=== PATIENT | female | born 1985 | race American Indian/Alaskan Native ===

== ENCOUNTER 2018-09-24 13:10 | Emergency (ER) | payer MEDICAID, OTHER ==
[2018-09-24 13:17] VITALS: BP 99/55
--- NOTE | 2018-09-24 13:24 | Emergency Department Report ---
Chief Complaint: Sickle Cell Crisis Stated Complaint: LEGS/STOMACH/SIDE/HEAD PAIN Time Seen by Provider: 09/24/18 13:21 - HPI History of Present Illness: HEAD TO TOE PAIN HX SCD PE FIBROMYALGIA OFF ALL MEDS FOR WEEKS TO MAIN MSE COMPLETED - Exam Vital Signs: Vital Signs 09/24/18 13:16 Temperature 98.9 F Pulse Rate 114 H Respiratory 18 Rate Blood Pressure 99/55 [Right] O2 Sat by Pulse 98 Oximetry MSE screening note: Focused history and physical exam performed. Due to findings the following was ordered: ED Disposition for MSE Condition: Stable
[2018-09-24 13:46] LABS: Basophils # (Auto) 0.1 K/mm3 (0.0-0.1); Basophils % (Auto) 0.8 % (0.0-1.8); Eosinophils # (Auto) 0.1 K/mm3 (0.0-0.4); Eosinophils % (Auto) 1.6 % (0.0-4.3); Hematocrit 36.2 % (30.3-42.9); Hemoglobin 12.5 gm/dl (10.1-14.3); Lymphocytes # (Auto) 1.2 K/mm3 (1.2-5.4); Lymphocytes % (Auto) 14.6 % (13.4-35.0); Mean Corpuscular HGB Conc 34 % (30-34); Mean Corpuscular Volume 81 fl (79-97); Monocytes # (Auto) 0.9 K/mm3 (0.0-0.8); Monocytes % (Auto) 10.8 % (0.0-7.3); Platelet Count 130 K/mm3 (140-440); Red Blood Count 4.48 M/mm3 (3.65-5.03)
[2018-09-24] MEDS ORDERED: D5NS 0.2% 1,000 ML IV SCH (14:00)
[2018-09-24 14:22] LABS: Alanine Aminotransferase 7 units/L (7-56); Albumin 3.6 g/dL (3.9-5); BUN/Creatinine Ratio 18; Blood Urea Nitrogen 9 mg/dL (7-17); Calcium 8.7 mg/dL (8.4-10.2); Hemolysis Index 8
[2018-09-24] MEDS ORDERED: TORADOL IV ONE (14:30)
[2018-09-24] MEDS ORDERED: DILAUDID IV ONE ×2 (14:30→14:53)
[2018-09-24] MEDS ORDERED: ZOFRAN IV ONE (14:30)
--- NOTE | 2018-09-24 14:37 | Emergency Department Report ---
ED General Adult HPI - General Chief complaint: Sickle Cell Crisis Stated complaint: LEGS/STOMACH/SIDE/HEAD PAIN Time Seen by Provider: 09/24/18 13:21 Source: patient Mode of arrival: Ambulatory Limitations: No Limitations - History of Present Illness Initial comments: Mr. Steinberg is a 33 yo female with hx of sickle cell disease and fibromyalgia who presents with severe diffuse joint pain "out of the blue" this afternoon. Followed at [facility]. Diffuse joint pain. Ran out of morphine and dilaudid her home medications. Denies fever or trauma. -: This afternoon Location: left, right, upper extremity, lower extremity Severity scale (0 -10): 10 Quality: aching Consistency: constant Improves with: none Worsens with: none Associated Symptoms: denies other symptoms - Related Data Allergies Allergy/AdvReac Type Severity Reaction Status Date / Time No Known Allergies Allergy Unverified 09/24/18 14:49 ED Review of Systems ROS: Stated complaint: LEGS/STOMACH/SIDE/HEAD PAIN Other details as noted in HPI Comment: Unobtainable due to pts medical conditions Constitutional: denies: fever, malaise Respiratory: denies: cough Cardiovascular: denies: chest pain Gastrointestinal: abdominal pain ED Past Medical Hx - Past Medical History Previous Medical History?: Yes Hx Deep Vein Thrombosis: Yes Hx Pulmonary Embolism: Yes Hx Sickle Cell Disease: Yes Additional medical history: fibromyalgia. scoliosis - Social History Smoking Status: Current Every Day Smoker ED Physical Exam - General Limitations: No Limitations General appearance: alert, in no apparent distress - Head Head exam: Present: atraumatic, normocephalic - Eye Eye exam: Present: normal appearance - ENT ENT exam: Present: mucous membranes moist - Neck Neck exam: Present: normal inspection, full ROM - Respiratory Respiratory exam: Present: normal lung sounds bilaterally. Absent: respiratory distress, wheezes, rales, rhonchi - Cardiovascular Cardiovascular Exam: Present: regular rate, normal rhythm, normal heart sounds. Absent: systolic murmur, diastolic murmur, rubs, gallop - GI/Abdominal GI/Abdominal exam: Present: soft, normal bowel sounds. Absent: distended, tenderness, guarding - Extremities Exam Extremities exam: Present: normal inspection - Back Exam Back exam: Present: normal inspection - Neurological Exam Neurological exam: Present: alert, oriented X3 - Psychiatric Psychiatric exam: Present: normal affect, normal mood - Skin Skin exam: Present: warm, dry, intact, normal color. Absent: rash ED Course Vital Signs 09/24/18 13:16 Temperature 98.9 F Pulse Rate 114 H Respiratory 18 Rate Blood Pressure 99/55 [Right] O2 Sat by Pulse 98 Oximetry ED Medical Decision Making - Lab Data Result diagrams: 09/24/18 13:33 09/24/18 13:33 Laboratory Results - last 24 hr 09/24/18 09/24/18 13:33 13:33 WBC 8.1 RBC 4.48 Hgb 12.5 Hct 36.2 MCV 81 MCH 28 MCHC 34 RDW 16.0 H Plt Count 130 L Lymph % (Auto) 14.6 [place] % (Auto) 10.8 H Eos % (Auto) 1.6 Baso % (Auto) 0.8 Lymph # 1.2 [place] # 0.9 H Eos # 0.1 Baso # 0.1 Seg Neutrophils % 72.2 H Seg Neutrophils # 5.8 Percent Retic 1.78 Sodium 137 Potassium 4.3 Chloride 108.1 H Carbon Dioxide 18 L Anion Gap 15 BUN 9 Creatinine 0.5 L Estimated GFR > 60 BUN/Creatinine Ratio 18 Glucose 82 Calcium 8.7 Total Bilirubin 0.70 AST 9 ALT 7 Alkaline Phosphatase 69 Total Protein 6.6 Albumin 3.6 L Albumin/Globulin Ratio 1.2 - EKG Data EKG shows normal: sinus rhythm, axis, intervals, QRS complexes, ST-T waves Rate: normal - Medical Decision Making Maria Teresa presents with sickle cell disease pain crisis. Given IVF and IV analgesia. Dc'd home. She plans to f/u at [facility] for medication. Critical care attestation.: If time is entered above; I have spent that time in minutes in the direct care of this critically ill patient, excluding procedure time. ED Disposition Clinical Impression: Sickle cell anemia with crisis Disposition: DC-01 TO HOME OR SELFCARE Is pt being admited?: No Does the pt Need Aspirin: No Condition: Stable Instructions: Sickle Cell Crisis (ED)
== END 2018-09-24 16:32 | disposition home or self-care (01) ==
LOC: ED 13:10
DX: D57.00 Hb-SS disease with crisis, unspecified (principal); M79.7 Fibromyalgia; F17.200 Nicotine dependence, unspecified, uncomplicated; Z86.718 Personal history of other venous thrombosis and embolism; Z86.711 Personal history of pulmonary embolism
CPT/HCPCS: 36415; 80053; 85025; 85045; 93005; 93010; 96374; 96375; 96376; 99283; J1170; J2405